=== PATIENT | male | born 2000 | race Caucasian/White ===

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

== ENCOUNTER → 2020-04-23 17:11 | Outpatient (BNVA) | payer OTHER, SELFPAY | PROVIDERS: Family Provider Family Medicine; Visit Provider Nurse Practitioner | DX: Z20.828 Contact with and (suspected) exposure to other viral communicable diseases (principal) | CPT/HCPCS: 87635 ==

== ENCOUNTER → 2020-12-07 10:25 | Outpatient (BNVA) | payer OTHER, SELFPAY | PROVIDERS: Family Provider Family Medicine; Visit Provider Nurse Practitioner Family | DX: Z20.822 Contact with and (suspected) exposure to COVID-19 (principal); J06.9 Acute upper respiratory infection, unspecified | CPT/HCPCS: 87400; 87426; 87880 ==

== ENCOUNTER 2023-06-21 13:30 | Emergency (ER) | payer SELFPAY ==
--- NOTE | 2023-06-21 13:32 | XR_ITS ---
WS: [id number] Exam: XR wrist LT min 3V* [id number] Date/Time of Exam: 06/21/2023 2:08 PM Reason For Exam: injury There are no fractures, soft tissue swelling, or unusual calcifications. The wrist shows normal bony alignment. There is no irregularity of the bony architecture. IMPRESSION: Negative LEFT wrist.
[2023-06-21 13:38] VITALS: BP 121/84; PULSE 77; RESP 18; TEMP 36.5; O2SAT 98
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
[2023-06-21 14:44] VITALS: PULSE 74; O2SAT 96
== END 2023-06-21 14:45 | disposition home or self-care (01) ==
PROVIDERS: Emergency Provider Nurse Practitioner Family
DX: S63.502A Unspecified sprain of left wrist, initial encounter (principal); Z72.0 Tobacco use; V47.5XXA Car driver injured in collision with fixed or stationary object in traffic accident, initial encounter
CPT/HCPCS: 73110; 99283

== ENCOUNTER 2023-11-01 03:37 | Inpatient (IN) | payer SELFPAY ==
[2023-11-01] VITALS (65 sets, daily range): BP systolic 95–135; BP diastolic 53–96; PULSE 63–117; RESP 12–23; TEMP 36.6–36.7; O2SAT 93–100; BMI 19.3; BMI 17.9
--- NOTE | 2023-11-01 03:43 | CTR_ITS ---
PROCEDURE INFORMATION: Exam: CT Head Without Contrast Exam date and time: 11/01/2023 5:26 AM Age: 23 years old Clinical indication: Altered mental status/memory loss; Additional info: AMS, hallucinations, agitation TECHNIQUE: Imaging protocol: Computed tomography of the head without contrast. Radiation optimization: All CT scans at this facility use at least one of these dose optimization techniques: automated exposure control; mA and/or kV adjustment per patient size (includes targeted exams where dose is matched to clinical indication); or iterative reconstruction. COMPARISON: No relevant prior studies available. RADIATION DOSE METRICS: Total DLP (mGy-cm): 1137.28 FINDINGS: Brain: No focal hemorrhage or midline shift is identified. The exam is limited by tilt of head to the right. Cerebral ventricles: No ventriculomegaly or evidence of acute hydrocephalus. Paranasal sinuses: The partially assessed sinuses are grossly clear. Mastoid air cells: Visualized mastoid air cells are well aerated. Bones: Unremarkable. No acute fracture. Soft tissues: Unremarkable. CT/CT head wo con* [id number] IMPRESSION: No acute intracranial abnormality.
--- NOTE | 2023-11-01 03:43 | XRR_ITS ---
PROCEDURE INFORMATION: Exam: XR Chest Exam date and time: 11/01/2023 4:16 AM Age: 23 years old Clinical indication: Cough; Additional info: Tachycardia TECHNIQUE: Imaging protocol: Radiologic exam of the chest. Views: 1 view. COMPARISON: CR XR ribs LT 2V* [id number] 10/01/2019 9:51 AM FINDINGS: Lungs: Unremarkable. No consolidation. Pleural spaces: Unremarkable. No pleural effusion. No pneumothorax. Heart/Mediastinum: Unremarkable. No cardiomegaly. Bones/joints: Unremarkable. XR/XR chest 1V portable [id number] IMPRESSION: No acute findings.
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
--- NOTE | 2023-11-01 03:55 | PC.NURSE ---
nasal trumpet 30fr placed in the pts left nare at this time
[2023-11-01 03:56] LABS: Basophils # 0.1 10^3/uL (0.0-0.1); Basophils % 0.5 %; Eosinophils # 0.2 10^3/uL (0.0-0.8); Eosinophils % 1.1 %; Hematocrit 51.4 % (37-53); Lymphocytes # 3.5 10^3/uL (0.8-4.8); Lymphocytes % 17.3 %; Mean Corpuscular HGB Conc 33.3 g/dL (30-55); Mean Corpuscular Hemoglobin 29.7 pg (27-33); Mean Corpuscular Volume 89.4 fl (82-101); Mean Platelet Volume 9.9 fL (7.4-10.4); Monocytes # 1.4 10^3/uL (0.2-0.9); Monocytes % 6.8 %; Neutrophils # 14.23 10^3/uL (1.8-7.7); Neutrophils % 70.3 %; Nucleated Red Blood Cells % 0 %; Platelet Count 294 10^3/cmm (157-399); Red Blood Count 5.75 10^6/uL (3.85-5.65); White Blood Count 20.28 10^3/uL (3.29-11.43)
--- NOTE | 2023-11-01 04:08 | ECG_ITS ---
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 Measurements Intervals [place] Rate: 111 P: 85 MT: 124 QRS: 114 QRSD: 85 T: 73 QT: 308 QTc: 419 Interpretive Statements SINUS TACHYCARDIA RIGHT ATRIAL ENLARGEMENT [0.3mV P-WAVE] POSSIBLE LEFT ATRIAL ENLARGEMENT [-0.1mV P-WAVE IN V1/V2] INDETERMINATE AXIS POSSIBLE RIGHT VENTRICULAR CONDUCTION DELAY [RSR (QR) IN V1/V2] LEFT POSTERIOR FASCICULAR BLOCK [QRS AXIS > 109, INFERIOR Q] No previous ECG available for comparison Electronically Signed On 11-01-2023 9:57:06 CDT by Manuel Robbins M.D. [id number]
[2023-11-01 04:16] LABS: ABG PCO2 41.3 mmHg (35-45); ABG PH Result 7.29 (7.35-7.45); Arterial Blood Gas Hematocrit 54.8 % (42-52); Base Excess ABG -6.8 mmol/L (-2.0-2.0); Blood Gas Allen Test Pos; Blood Gas Sample Type Arterial; Carboxyhemoglobin 1.5 %THgb (0.4-20.1); HCO3 ABG 19.6 mmol/L (22-26); HGB O2 Sat 97.5 % (95-100); Ionized Calcium Level - ABG 1.2 mmol/L (1.1-1.4); Methemoglobin 0.3 % (0.4-1.5); Oxygen Saturation ABG 99.3; Potassium Level - ABG 4.1 mmol/L (3.5-5.0); Total Hemoglobin 17.9 g/dL (14-18)
[2023-11-01 04:17] LABS: Blood Gas Operator Identificat CL; Blood Gas Sample Site Radial, right; Oxygen Device NC
[2023-11-01 04:19] LABS: Charge for UA Resulting for Rev
[2023-11-01 04:19] LABS: Troponin(5th) Baseline < 6 ng/L (0-15)
[2023-11-01 04:20] LABS: Acetaminophen < 5.0 ug/mL (10-30); Alanine Aminotransferase 20 U/L (0-41); Albumin Level 5.1 g/dL (3.5-5.2); Alcohol Level 300 mg/dL (0-10); Alkaline Phosphatase 56 U/L (40-130); Anion Gap 24.1 (5-19); Aspartate Amino Transferase 30 U/L (0-40); Blood Urea Nitrogen 8 mg/dL (6-20); Carbon Dioxide 19 mmol/L (22-29); Chloride 108 mmol/L (98-107); Creatinine Clr Calc Pharmacy 105.6096; Globulin 2.4 g/dL (1.3-4.6); Glomerular Filtration Rate 119.8 mL/min (90-130); Glucose 96 mg/dL (65-115); Magnesium 2.8 mg/dL (1.7-2.3); Osmolality Calculated 302 mOsm/kg (285-295); Potassium 4.1 mmol/L (3.5-5.1); Salicylate < 0.3 mg/dL (3-10); Sodium 147 mmol/L (136-145); Total Bilirubin 0.3 mg/dL (0.15-1.2); Total Protein 7.5 g/dL (6.6-8.7)
[2023-11-01 04:21] LABS: Bilirubin Urine Negative (Negative); Blood Urine 3+ (Negative); Glucose Urine UA Negative (Normal); Ketones Urine Negative (Negative); Leukocyte Esterase Urine Negative (Negative); Nitrate Urine Negative (Negative); Protein Urine 3+ (Negative); Specific Gravity, Urine 1.014 (1.005-1.030); Urine Appearance Cloudy (CLEAR); Urine Color Yellow (Yellow); pH Urine 5.5 (5-7)
[2023-11-01 04:24] LABS: Bacteria Urine None Seen /hpf; Hyaline Casts Urine 256.96 /lpf; RBC Urine 0-2 /hpf (0-2); WBC Urine 0-5 /hpf (0-5)
[2023-11-01 04:28] LABS: Lactic Sepsis W/Reflex 7.9 mmol/L (0.5-2.2)
[2023-11-01 04:28] LABS: Amphetamines Screen Urine Negative (Negative); Barbiturates Screen Urine Negative (Negative); Benzodiazepines Screen Urine Negative (Negative); Cocaine Screen Urine Negative (Negative); Opiate Screen Urine Negative (Negative); PCP Screen Urine Negative (Negative); THC Screen Urine Positive (Negative)
[2023-11-01 04:37] LABS: Add Urine Culture? No
[2023-11-01 04:38] LABS: Influenza A by IFA negative (Negative); Influenza B by IFA negative (Negative); SARS Covid-2 Antigen negative (Negative)
--- NOTE | 2023-11-01 04:39 | PC.NURSE ---
This nurse monitred pt to CT for scan. Pt began vomiting, unable to lay flat at this time. Pt pulled 2nd IV. aware.
[2023-11-01] MEDS: sodium chloride 0.9% 1,000 ML 999 ML IV ×2 (04:41→05:10)
[2023-11-01 04:48] LABS: Procalcitonin 0.04 ng/mL (0-0.5)
--- NOTE | 2023-11-01 05:44 | ECG_ITS ---
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 Measurements Intervals [place] Rate: 92 P: 82 MI: 146 QRS: 65 QRSD: 87 T: 75 QT: 339 QTc: 420 Interpretive Statements SINUS RHYTHM POSSIBLE RIGHT ATRIAL ENLARGEMENT [0.25mV P-WAVE] POSSIBLE LEFT ATRIAL ENLARGEMENT [-0.1mV P-WAVE IN V1/V2] INDETERMINATE AXIS POSSIBLE RIGHT VENTRICULAR CONDUCTION DELAY [RSR (QR) IN V1/V2] Compared to ECG 11/01/2023 04:08:01 Sinus tachycardia no longer present Left posterior fascicular block no longer present Electronically Signed On 11-01-2023 9:59:27 CDT by Manuel Robbins M.D. [id number]
[2023-11-01 05:51] LABS: Reflex Lactate Order REFLEX LACTIC ORDERD
[2023-11-01 06:29] LABS: Lactic Acid level (Lactate) 3.5 mmol/L (0.5-2.2)
[2023-11-01 06:41] LABS: Troponin 5 2HR Delta 0.00001 ABS# (0-10)
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
--- NOTE | 2023-11-01 07:59 | PC.NURSE ---
arrived from ED approximately 0730
[2023-11-01] MEDS: sodium chloride 0.9% 1,000 ML 75 ML IV ×2 (08:06→20:45)
[2023-11-01] MEDS: enoxaparin 40 mg/0.4 mL Syringe SUBCUT (08:06)
[2023-11-01] MEDS: cefepime 2,000 MG in sodium chloride 0.9% (plus) 50 ML 100 MG IV ×2 (08:07→20:42)
[2023-11-01] MEDS: vancomycin 500 MG in sodium chloride 0.9% (plus) 100 ML 200 MG IV ×3 (08:57→23:28)
[2023-11-01] MEDS: multivitamin therapeutic Tablet 1 TAB PO (08:58)
[2023-11-01] MEDS: pantoprazole DR 40 mg Tablet PO (08:58)
[2023-11-01] MEDS: folic acid 1 mg Tablet PO (08:58)
[2023-11-01] MEDS: thiamine 100 mg Tablet PO (08:58)
--- NOTE | 2023-11-01 09:44 | ECG_ITS ---
[facility] Test Date: 2023-11-01 Pat Name: Champ Bhat Department: Room: [facility] Gender: Male Store Consultant: : 2000 Requested By: Geovanni Edwards Order Number: [id number] Dennis MD: Manuel Robbins M.D. Measurements Intervals [place] Rate: 81 P: 80 UT: 134 QRS: 90 QRSD: 88 T: 75 QT: 333 QTc: 387 Interpretive Statements SINUS RHYTHM WITH SINUS ARRHYTHMIA POSSIBLE RIGHT VENTRICULAR CONDUCTION DELAY [RSR (QR) IN V1/V2] Compared to ECG 11/01/2023 06:33:53 Indeterminate axis no longer present Electronically Signed On 11-01-2023 11:19:19 CDT by Manuel Robbins M.D. [id number]
[2023-11-01 09:52] LABS: Troponin 5 6HR Delta 0.00001 ng/L (0-12)
[2023-11-01] MEDS: nicotine 21 mg Patch 1 PATCH TRANSDERMA (10:02)
[2023-11-01] MEDS: acetaminophen 325 mg Tablet 650 MG PO (18:45)
[2023-11-02] VITALS: BP 113/78; PULSE 58; RESP 18; TEMP 36.8; O2SAT 99
[2023-11-02 04:00] VITALS: BP 120/80; PULSE 57; RESP 18; TEMP 36.6; O2SAT 98
[2023-11-02 04:33] LABS: Basophils # 0.1 10^3/uL (0.0-0.1); Basophils % 0.6 %; Eosinophils # 0.2 10^3/uL (0.0-0.8); Eosinophils % 2.3 %; Hematocrit 40.6 % (37-53); Lymphocytes # 3.2 10^3/uL (0.8-4.8); Lymphocytes % 36.8 %; Mean Corpuscular HGB Conc 33.7 g/dL (30-55); Mean Corpuscular Hemoglobin 30.4 pg (27-33); Mean Corpuscular Volume 90.2 fl (82-101); Mean Platelet Volume 9.9 fL (7.4-10.4); Monocytes # 0.9 10^3/uL (0.2-0.9); Monocytes % 10.1 %; Neutrophils # 4.35 10^3/uL (1.8-7.7); Neutrophils % 49.5 %; Nucleated Red Blood Cells % 0 %; Platelet Count 186 10^3/cmm (157-399); Red Cell Distribution Width 12.2 % (12.1-15.1); White Blood Count 8.78 10^3/uL (3.29-11.43)
[2023-11-02 04:53] LABS: Alanine Aminotransferase 13 U/L (0-41); Albumin Level 3.6 g/dL (3.5-5.2); Alkaline Phosphatase 49 U/L (40-130); Anion Gap 13.8 (5-19); Aspartate Amino Transferase 21 U/L (0-40); Blood Urea Nitrogen 8 mg/dL (6-20); Carbon Dioxide 21 mmol/L (22-29); Chloride 112 mmol/L (98-107); Creatinine Clr Calc Pharmacy 120.6373; Globulin 1.6 g/dL (1.3-4.6); Glucose 90 mg/dL (65-115); Osmolality Calculated 294 mOsm/kg (285-295); Potassium 3.8 mmol/L (3.5-5.1); Sodium 143 mmol/L (136-145); Total Bilirubin 1.1 mg/dL (0.15-1.2); Total Protein 5.2 g/dL (6.6-8.7)
[2023-11-02 07:29] VITALS: BP 122/86; PULSE 64; RESP 15; TEMP 36.7; O2SAT 99
[2023-11-02] MEDS: vancomycin 500 MG in sodium chloride 0.9% (plus) 100 ML 200 MG IV (07:40)
[2023-11-02] MEDS: folic acid 1 mg Tablet PO (07:42)
[2023-11-02] MEDS: multivitamin therapeutic Tablet 1 TAB PO (07:42)
[2023-11-02] MEDS: pantoprazole DR 40 mg Tablet PO (07:42)
[2023-11-02] MEDS: nicotine 21 mg Patch 1 PATCH TRANSDERMA (07:42)
[2023-11-02] MEDS: thiamine 100 mg Tablet PO (07:42)
[2023-11-02] MEDS: enoxaparin 40 mg/0.4 mL Syringe SUBCUT (07:46)
[2023-11-02] MEDS: cefepime 2,000 MG in sodium chloride 0.9% (plus) 50 ML 100 MG IV (08:20)
[2023-11-02] MEDS: sodium chloride 0.9% 1,000 ML 75 ML IV (08:22)
--- NOTE | 2023-11-02 08:32 | P.DS_ITS ---
Discharge Providers Date of Admission: 11/01/23 05:26 Date of Discharge: November 01, 2023 Attending Provider at Admission: Farzaneh Figueroa MD Attending Provider at Discharge: Farzaneh Figueroa MD Diagnoses at Discharge Discharge Diagnosis (1) Alcohol intoxication: Status: Acute Qualifiers: Complication of substance-induced condition: uncomplicated Qualified Code(s): F10.920 - Alcohol use, unspecified with intoxication, uncomplicated (2) AMS (altered mental status): Status: Acute Qualifiers: Altered mental status type: unspecified Qualified Code(s): R41.82 - Altered mental status, unspecified (3) Lactic acidosis: Status: Acute (4) Leukocytosis: Status: Acute Reason for Visit Reason for Visit: hallucinations, agitation Hospital Course Hospital Course 23-year-old male who was admitted for management evaluation of alcohol intoxication, at the time of evaluation patient is awake and alert able to communicate, I did not see any focal deficit, clinically he was dehydrated, received IV fluids, patient is endorsing to binge drinking, never had significant withdrawal to the point he needed intubation. Patient is stating that he started drinking after his divorce, he was put on IV fluids along with antibiotics for possible UTI however he does not have any signs of UTI clinically. Patient has multiple bruises all over extremities. I do not see any active signs of infection patient may need thiamine and folic acid at the time of discharge. He is an active smoker smokes 1 pack/day. He is being discharged with stable hemodynamics, leukocytosis seems stress leukemoid reaction, lactic acid consistent with dehydration his sodium is 147 he was given IV fluids. Physical Exam Narrative: Awake and alert Multiple bruises no active signs of infection No sign of cellulitis S1, S2 Hemodynamically stable Present Nonfocal neuroexam Discharge Data Studies Completed and Pending Completed Studies During Hospitalization Category Date Time Status CT head wo con* [id number] Stat Cat Scan 11/01/23 03:43 Completed XR chest 1V portable [id number] Stat Exams 11/01/23 03:43 Completed Pending at discharge Category Date Time Status Blood Culture Stat Lab 11/01/23 07:40 Results Complete Blood Count w/Auto AM LABS Lab 11/02/23 04:00 Ordered Comprehensive Metabolic Panel AM LABS Lab 11/02/23 04:00 Ordered Tick Panel Routine Lab 11/01/23 07:38 Received Troponin(5th) 6 hour. Timed Lab 11/01/23 09:28 Received Radiology Impressions Chest X-Ray 11/01/23 03:43 IMPRESSION: No acute findings. Head CT 11/01/23 03:43 IMPRESSION: No acute intracranial abnormality. Laboratory Results WBC 20.28 10^3/uL (3.29-11.43) H 11/01/23 03:51 RBC 5.75 10^6/uL (3.85-5.65) H 11/01/23 03:51 Hgb 17.10 g/dL (11.27-16.99) H 11/01/23 03:51 Hct 51.4 % (37-53) 11/01/23 03:51 MCV 89.4 fl (82-101) 11/01/23 03:51 MCH 29.7 pg (27-33) 11/01/23 03:51 MCHC 33.3 g/dL (30-55) 11/01/23 03:51 RDW 12.0 % (12.1-15.1) L 11/01/23 03:51 Plt Count 294 10^3/cmm (157-399) 11/01/23 03:51 MPV 9.9 fL (7.4-10.4) 11/01/23 03:51 Neut % (Auto) 70.3 % 11/01/23 03:51 Lymph % (Auto) 17.3 % 11/01/23 03:51 [place] % (Auto) 6.8 % 11/01/23 03:51 Eos % (Auto) 1.1 % 11/01/23 03:51 Baso % (Auto) 0.5 % 11/01/23 03:51 Neut # (Auto) 14.23 10^3/uL (1.8-7.7) H 11/01/23 03:51 Lymph # (Auto) 3.5 10^3/uL (0.8-4.8) 11/01/23 03:51 [place] # (Auto) 1.4 10^3/uL (0.2-0.9) H 11/01/23 03:51 Eos # (Auto) 0.2 10^3/uL (0.0-0.8) 11/01/23 03:51 Baso # (Auto) 0.1 10^3/uL (0.0-0.1) 11/01/23 03:51 Nucleated RBC % (auto) 0 % 11/01/23 03:51 Nucleated RBCs # 0.0 /100WBC 11/01/23 03:51 Specimen Type Arterial 11/01/23 04:10 Sample Site Radial, right 11/01/23 04:10 ABG pH 7.29 (7.35-7.45) L 11/01/23 04:10 ABG pCO2 41.3 mmHg (35-45) 11/01/23 04:10 ABG pO2 163.0 mmHg (80.0-100.0) H 11/01/23 04:10 ABG HCO3 19.6 mmol/L (22-26) L 11/01/23 04:10 ABG O2 Saturation 99.3 11/01/23 04:10 ABG Base Excess -6.8 mmol/L (-2.0-2.0) L 11/01/23 04:10 Amador Test Pos 11/01/23 04:10 A-a O2 Gradient Not Reportable 11/01/23 04:10 Hematocrit 54.8 % (42-52) H 11/01/23 04:10 Hgb O2 Saturation 97.5 % (95-100) 11/01/23 04:10 Carboxyhemoglobin 1.5 %THgb (0.4-20.1) 11/01/23 04:10 Methemoglobin 0.3 % (0.4-1.5) L 11/01/23 04:10 Total Hemoglobin 17.9 g/dL (14-18) 11/01/23 04:10 Sodium 151.0 mmol/L (131-143) H 11/01/23 04:10 Potassium 4.1 mmol/L (3.5-5.0) 11/01/23 04:10 Glucose 101.0 mg/dL (70-115) 11/01/23 04:10 Ionized Calcium 1.2 mmol/L (1.1-1.4) 11/01/23 04:10 O2 Delivery Device Nc 11/01/23 04:10 Social Services Technician ID Cl 11/01/23 04:10 Sodium 147 mmol/L (136-145) H 11/01/23 03:51 Potassium 4.1 mmol/L (3.5-5.1) 11/01/23 03:51 Chloride 108 mmol/L (98-107) H 11/01/23 03:51 Carbon Dioxide 19 mmol/L (22-29) L 11/01/23 03:51 Anion Gap 24.1 (5-19) H 11/01/23 03:51 BUN 8 mg/dL (6-20) 11/01/23 03:51 Creatinine 0.8 mg/dL (0.7-1.2) 11/01/23 03:51 GFR Calculation 119.8 mL/min (90-130) 11/01/23 03:51 Glucose 96 mg/dL (65-115) 11/01/23 03:51 Calculated Osmolality 302 mOsm/kg (285-295) H 11/01/23 03:51 Lactic Acid 7.9 mmol/L (0.5-2.2) H* 11/01/23 03:51 Lactic Acid (Sepsis) 3.5 mmol/L (0.5-2.2) H 11/01/23 06:08 Calcium 9.0 mg/dL (8.5-10.5) 11/01/23 03:51 Magnesium 2.8 mg/dL (1.7-2.3) H 11/01/23 03:51 Total Bilirubin 0.3 mg/dL (0.15-1.2) 11/01/23 03:51 AST 30 U/L (0-40) 11/01/23 03:51 ALT 20 U/L (0-41) 11/01/23 03:51 Alkaline Phosphatase 56 U/L (40-130) 11/01/23 03:51 Troponin T Baseline < 6 ng/L (0-15) 11/01/23 03:51 Troponin T 120 Minute 6.00 ng/L (0-15) 11/01/23 06:10 Delta Troponin T 0.29246 ABS# (0-10) 11/01/23 06:10 Total Protein 7.5 g/dL (6.6-8.7) 11/01/23 03:51 Albumin 5.1 g/dL (3.5-5.2) 11/01/23 03:51 Globulin 2.4 g/dL (1.3-4.6) 11/01/23 03:51 Procalcitonin 0.04 ng/mL (0-0.5) 11/01/23 03:51 TSH 1.70 uIU/mL (0.27-4.20) 11/01/23 03:51 Urine Color Yellow (Yellow) 11/01/23 03:59 Urine Appearance Cloudy (CLEAR) A 11/01/23 03:59 Urine pH 5.5 (5-7) 11/01/23 03:59 Ur Specific [place] 1.014 (1.005-1.030) 11/01/23 03:59 Urine Protein 3+ (Negative) A 11/01/23 03:59 Urine Glucose (UA) Negative (Normal) 11/01/23 03:59 Urine Ketones Negative (Negative) 11/01/23 03:59 Urine Blood 3+ (Negative) A 11/01/23 03:59 Urine Nitrate Negative (Negative) 11/01/23 03:59 Urine Bilirubin Negative (Negative) 11/01/23 03:59 Urine Urobilinogen 1.0 mg/dL (Negative) 11/01/23 03:59 Ur Leukocyte Esterase Negative (Negative) 11/01/23 03:59 Urine RBC 0-2 /hpf (0-2) 11/01/23 03:59 Urine WBC 0-5 /hpf (0-5) 11/01/23 03:59 Ur Squamous Epith Cells 6-10 /hpf (0-5) 11/01/23 03:59 Amorphous Sediment Not Reportable 11/01/23 03:59 Urine Bacteria None seen /hpf (NONE) 11/01/23 03:59 Hyaline Casts 256.96 /lpf 11/01/23 03:59 Salicylates < 0.3 mg/dL (3-10) L 11/01/23 03:51 Urine Opiates Screen Negative ng/mL (Negative) 11/01/23 03:59 Acetaminophen < 5.0 ug/mL (10-30) L 11/01/23 03:51 Ur Barbiturates Screen Negative ng/mL (Negative) 11/01/23 03:59 Ur Phencyclidine Scrn Negative ng/mL (Negative) 11/01/23 03:59 Ur Amphetamines Screen Negative ng/mL (Negative) 11/01/23 03:59 U Benzodiazepines Scrn Negative ng/mL (Negative) 11/01/23 03:59 Urine Cocaine Screen Negative ng/mL (Negative) 11/01/23 03:59 U Marijuana (THC) Screen Positive ng/mL (Negative) H 11/01/23 03:59 Ethyl Alcohol 300 mg/dL (0-10) H 11/01/23 03:51 Influenza Type A Ag negative (Negative) 11/01/23 04:10 Influenza Type B Ag negative (Negative) 11/01/23 04:10 SARS-CoV-2 Ag (Rapid) negative (Negative) 11/01/23 04:10 Vitals Last Vital Signs Temp 97.9 F 11/01/23 03:38 Pulse 86 11/01/23 09:05 Resp 17 11/01/23 09:05 BP 135/96 11/01/23 09:05 Pulse Ox 100 11/01/23 09:05 O2 Del Method Room Air 11/01/23 07:30 O2 Flow Rate 2 11/01/23 03:54 Discharge Plan Discharge Patient Disposition: Home Condition: Stable Prescriptions: New doxycycline hyclate 100 mg tablet 100 mg PO BID 3 Days Qty: 6 0RF folic acid 1 mg Tablet 1 mg PO DAILY Qty: 30 0RF thiamine mononitrate (vit B1) [Vitamin B-1 (mononitrate)] 100 mg Tablet 100 mg PO DAILY Qty: 30 0RF No Action No Known Home Medications Discharge Orders: Discharge Order (Routine); Ordered 11/02/23 Ordered By: Yesica Reyes Patient Instructions: Opioid Safety Discharge Attestations Time Spent in Discharge Care*: greater than 30 min Quality Metrics Clinical Quality Measures [ No reported AMI, CVA or VTE this stay] Coding Level of Care Code Acute Code for g Fwd Diagnoses Alcohol intoxication F10.920 Complication of substance-induced condition: uncomplicated AMS (altered mental status) R41.82 Altered mental status type: unspecified Lactic acidosis E87.20 Leukocytosis D72.829
--- NOTE | 2023-11-02 08:35 | PC.CHAP ---
Pastoral Care Encounter/Spiritual Assessment Type of Contact [x] Declined director digital strategy visit [] Patient/Family/Request visit [] Outpatient visit [] Follow-up visit [] Physician referral [] Code/Alert [x] Routine visit [] Staff referral [] Actively dying [] Patient sleeping [] Family support [] [] Out of room [] Palliative care [] [] Receiving care in room [] Pre-surgical visit [] Trauma [] Long length of stay [] ICU visit [] Other: Relational/Emotional Strength [x] Patient feels connected with others/family/visitors/staff [x] Distress [] Loneliness/isolation [] Abandonment Spirituality of Patient [x] Person of Denise [] Attends Religion of their Denise [] Believes in Prayer [] Reads Bible or Restorationist materials [x] There are Spiritual issues to be addressed Deputy Fire Chief Interventions [] Prayer [] Active listening [] Non-anxious presence [] Spiritual/emotional support [] Crisis/trauma care [] Spiritual counseling [] Bereavement support [] Provided bereavement packet [] Provided Bible/devotional materials [] Provided toy/stuffed animal, coloring book to patient or family member [] Provided Communion [] Anointing/[place] [] Salvation [] Completed spiritual assessment [] Other: Impact on Illness or Injury [] Angry [] Fearful [] Anxious [] Often cries [] Exhaustion [] Unable to work [] Unable to attend taoism [] Unable to walk/stand [] Unable to read [] Unable to drive [] Unable to eat/drink [] Unable to sleep [] Unable to be with family [] Patient intubated [] Other: Summary Gnosticist will allow us to pray but will not pray with us Time spent with patient 5min
[2023-11-02 09:15] VITALS: BP 122/86; PULSE 64; RESP 15; TEMP 36.7; O2SAT 99
--- NOTE | 2023-11-02 09:15 | PC.NURSE ---
Discharge Note Patient discharged to home via private vehicle accompanied by father. Discharge instructions reviewed with patient and/or u.s. representative. Mobile pharmacy medications and/or prescriptions provided. Belongings/home medications returned.
[2023-11-02 14:35] LABS: Lyme AB Screen <0.90 index
[2023-11-06 16:54] LABS: RMSF IGG NOT DETECTED; RMSF IGM NOT DETECTED
[2023-11-07 17:20] LABS: E. Chaffeensis AB IGG <1:64; E. Chaffeensis AB IGM <1:20
== END 2023-11-02 09:55 | disposition home or self-care (01) | DRG 897 ==
LOC: ER 05:12 → ICU 05:26 → MEDSURG 18:04
PROVIDERS: Admitting Provider Student in an Organized Health Care Education/Training Program; Emergency Provider Emergency Medicine; Visit Provider Student in an Organized Health Care Education/Training Program
DX: F10.129 Alcohol abuse with intoxication, unspecified (principal); E87.20 Acidosis, unspecified; Y90.8 Blood alcohol level of 240 mg/100 ml or more; E86.0 Dehydration; D72.829 Elevated white blood cell count, unspecified; F17.200 Nicotine dependence, unspecified, uncomplicated; R21 Rash and other nonspecific skin eruption; T14.8XXA Other injury of unspecified body region, initial encounter; X58.XXXA Exposure to other specified factors, initial encounter
CPT/HCPCS: 36415; 36600; 70450; 71045; 80051; 80053; 80306; 80307; 81003; 81015; 82330; 82805; 83605; 83735; 84145; 84443; 84484; 85025; 86618; 86666; 86757; 87040; 87426; 87804; 93005; 96360; 96372; 99285; 99291; J0692; J1650; J3370; J3411; J7030

== ENCOUNTER 2024-10-21 10:48 | Emergency (ER) | payer SELFPAY ==
[2024-10-21 10:53] VITALS: BP 117/76; PULSE 85; TEMP 36.7; O2SAT 100; BMI 20.1
[2024-10-21 11:13] VITALS: PULSE 90; O2SAT 99
--- NOTE | 2024-10-21 11:14 | ED_ITS ---
HPI - Nausea/Vomiting/Diarrhea 2 General: Chief complaint: Nausea/Vomiting/Diarrhea Stated complaint: diarhea Time Seen by Provider: 10/21/24 10:56 Source: patient Mode of arrival: ambulatory Limitations: no limitations History of Present Illness: 24-year-old male who presents to the ED with complaint of nausea, vomiting, watery diarrhea, abdominal cramping over the past 5 days. Patient denies any recent travel or consuming any spoiled food, but states that his friend at work had similar symptoms for about a week that had resolved on its own. He reports that the vomiting has decreased in frequency but his diarrhea is persistently every 30 minutes to 1 hour. He also reports feeling dehydrated and having intermittent headaches, which she has been taking Tylenol as needed for. He states he is able to eat and drink but the persistent diarrhea is keeping him dehydrated. He has also been taking Pepto-Bismol. Denies any fever, chills, chest pain, shortness of breath, blood in the stool, or urinary symptoms. No other complaints at this time. MD elicited complaint: nausea, vomiting, diarrhea and abdominal pain Onset (ago): day(s) (5) Description of vomiting: watery Description of diarrhea: mucus and watery Associated nausea: Yes Associated abdominal pain: Yes Location of pain: Diffuse Pain consistency: intermittent Quality: cramping Relieving factors: none Context: sick contacts Associated symtoms: Reports headache(s) and nausea; Denies chest pain, fevers/chills, palpitations, short of breath or weakness Treatment prior to arrival: analgesics (Tylenol) and other OTC medicine (Pepto- Bismol) Related Data Previous Rx's ?Medication ?Instructions ?Recorded folic acid 1 mg tablet 1 mg PO DAILY #30 tabs 10/31 thiamine mononitrate (vit B1) 100 100 mg PO DAILY #30 tabs 11/01/23 mg tablet (Vitamin B-1 (mononitrate)) ciprofloxacin HCl 500 mg tablet 500 mg PO Q12H #14 tab s 10/21/24 (Cipro) metronidazole 500 mg tablet 500 mg PO BID 7 days #14 t abs 10/21/24 Allergies Allergy/AdvReac Type Severity Reaction Status Date / Time Opioids - Morphine Analogues Allergy Mild Unknown Verified 10/21/24 10:58 Review of Systems 2 Const: Denies: fever(s) or chills Card: Denies: chest pain or palpitations GI: Reports: abdominal pain, nausea, vomiting and diarrhea; Denies: hematochezia Neuro: Reports: headache(s) PFSH ED 2 PFSH: Medical History (Updated 10/21/24 @ 12:27 by JASEN Dockery) Leukocytosis Lactic acidosis AMS (altered mental status) Alcohol intoxication Social History Smoking and tobacco/nicotine status: current every day tobacco/nicotine user Course 2 Vital Signs: Vital signs: Vital Signs Temperature 98.0 F 10/21/24 10:53 Pulse Rate 90 10/21/24 11:13 Blood Pressure 117/76 10/21/24 10:53 Pulse Oximetry 99 10/21/24 11:13 Oxygen Delivery Me thod Room Air 10/21/24 11:13 MDM - Nausea/Vomiting/Diarrhea Medical Decision Making Patient here for nausea, vomiting, diarrhea, abdominal pain over the past several days. Vital signs are stable. Blood work showing white count of 19,000. Remainder of labs are unremarkable. He was not able to give a stool sample in over 2-1/2 hours while here. Will cover with Cipro/Flagyl. Recommend he follow-up with primary care. Return to ED precautions discussed. Medical Records I reviewed the patient's medical records. Lab Data I reviewed the patient's lab results. 10/21/24 11:19 10/21/24 11:19 Radiology Impressions Abdomen/Pelvis CT 10/21/24 11:45 IMPRESSION: 1. Findings suspicious for acute enterocolitis described above with diffuse enhancement likely infectious or inflammatory. 2. Normal appendix Notified JASEN Dockery at 10/21/2024 12:22 PM. Laboratory Results WBC 19.15 10^3/uL (3.29-11.43) H 10/21/24 11:19 RBC 5.57 10^6/uL (3.85-5.65) 10/21/24 11:19 Hgb 16.40 g/dL (11.27-16.99) 10/21/24 11:19 Hct 47.9 % (37-53) 10/21/24 11:19 MCV 86.0 fl (82-101) 10/21/24 11:19 MCH 29.4 pg (27-33) 10/21/24 11:19 MCHC 34.2 g/dL (30-55) 10/21/24 11:19 RDW 11.9 % (12.1-15.1) L 10/21/24 11:19 Plt Count 290 10^3/cmm (157-399) 10/21/24 11:19 MPV 9.7 fL (7.4-10.4) 10/21/24 11:19 Neut % (Auto) 77.8 % 10/21/24 11:19 Lymph % (Auto) 12.2 % 10/21/24 11:19 Cassia % (Auto) 8.6 % 10/21/24 11:19 Eos % (Auto) 0.5 % 10/21/24 11:19 Baso % (Auto) 0.4 % 10/21/24 11:19 Neut # (Auto) 14.90 10^3/uL (1.8-7.7) H 10/21/24 11:19 Lymph # (Auto) 2.3 10^3/uL (0.8-4.8) 10/21/24 11:19 Cassia # (Auto) 1.7 10^3/uL (0.2-0.9) H 10/21/24 11:19 Eos # (Auto) 0.1 10^3/uL (0.0-0.8) 10/21/24 11:19 Baso # (Auto) 0.1 10^3/uL (0.0-0.1) 10/21/24 11:19 Nucleated RBC % (auto) 0 % 10/21/24 11:19 Nucleated RBCs # 0.0 /100WBC 10/21/24 11:19 Sodium 138 mmol/L (136-145) 10/21/24 11:19 Potassium 3.8 mmol/L (3.5-5.1) 10/21/24 11:19 Chloride 98 mmol/L (98-107) 10/21/24 11:19 Carbon Dioxide 25 mmol/L (22-29) 10/21/24 11:19 Anion Gap 18.8 (5-19) 10/21/24 11:19 BUN 10 mg/dL (6-20) 10/21/24 11:19 Creatinine 0.7 mg/dL (0.7-1.2) 10/21/24 11:19 GFR Calculation 138.6 mL/min (90-130) H 10/21/24 11:19 Glucose 106 mg/dL (65-115) 10/21/24 11:19 Calculated Osmolality 285 mOsm/kg (285-295) 10/21/24 11:19 Calcium 9.5 mg/dL (8.5-10.5) 10/21/24 11:19 Total Bilirubin 0.5 mg/dL (0.15-1.2) 10/21/24 11:19 AST 15 U/L (0-40) 10/21/24 11:19 ALT 12 U/L (0-41) 10/21/24 11:19 Alkaline Phosphatase 61 U/L (40-130) 10/21/24 11:19 Total Protein 7.4 g/dL (6.6-8.7) 10/21/24 11:19 Albumin 4.5 g/dL (3.5-5.2) 10/21/24 11:19 Globulin 2.9 g/dL (1.3-4.6) 10/21/24 11:19 Lipase 24 U/L (13-60) 10/21/24 11:19 Urine Color Yellow (Yellow) 10/21/24 11:00 Urine Appearance Clear (CLEAR) 10/21/24 11:00 Urine pH 6.0 (5-7) 10/21/24 11:00 Ur Specific [place] 1.029 (1.005-1.030) 10/21/24 11:00 Urine Protein Trace (Negative) A 10/21/24 11:00 Urine Glucose (UA) Negative (Normal) 10/21/24 11:00 Urine Ketones Negative (Negative) 10/21/24 11:00 Urine Blood 2+ (Negative) A 10/21/24 11:00 Urine Nitrate Negative (Negative) 10/21/24 11:00 Urine Bilirubin Negative (Negative) 10/21/24 11:00 Urine Urobilinogen 1.0 mg/dL (Negative) 10/21/24 11:00 Ur Leukocyte Esterase Negative (Negative) 10/21/24 11:00 Urine RBC 3-5 /hpf (0-2) 10/21/24 11:00 Urine WBC 0-5 /hpf (0-5) 10/21/24 11:00 Ur Squamous Epith Cells 0-5 /hpf (0-5) 10/21/24 11:00 Amorphous Sediment Not Reportable 10/21/24 11:00 Urine Bacteria None seen /hpf (NONE) 10/21/24 11:00 Hyaline Casts 2.05 /lpf 10/21/24 11:00 All radiology interpretation(s) finalized by discharge Discharge Plan Discharge Patient Disposition: Home Clinical Impression: Enteritis, Colitis Condition: Stable Prescriptions: New metronidazole 500 mg tablet 500 mg PO BID 7 Days Qty: 14 0RF ciprofloxacin HCl [Cipro] 500 mg tablet 500 mg PO Q12H Qty: 14 0RF No Action folic acid 1 mg Tablet 1 mg PO DAILY Qty: 30 0RF Vitamin B-1 (mononitrate) 100 mg Tablet 100 mg PO DAILY Qty: 30 0RF Discharge Orders: Discharge ED (Routine); Ordered 10/21/24 Ordered By: Helen Klein Patient Instructions: Colitis (ED), Enteritis (ED), Patient Portal & [place] Instructions Stand Alone Forms: Work/School Release Print Language: Luxembourgish Coding Level of Care Code ED Eff[employer] Compounder for Debbie Palm
[2024-10-21 11:18] LABS: Glucose Urine UA Negative (Normal); Nitrate Urine Negative (Negative); Specific Gravity, Urine 1.029 (1.005-1.030)
[2024-10-21 11:22] LABS: Add Urine Microscopic? YES
[2024-10-21 11:26] LABS: Hematocrit 47.9 % (37-53); Hemoglobin 16.40 g/dL (11.27-16.99); Mean Corpuscular HGB Conc 34.2 g/dL (30-55); Mean Corpuscular Hemoglobin 29.4 pg (27-33); Mean Corpuscular Volume 86.0 fl (82-101); Nucleated Red Blood Cells % 0 %; Platelet Count 290 10^3/cmm (157-399); Red Blood Count 5.57 10^6/uL (3.85-5.65); White Blood Count 19.15 10^3/uL (3.29-11.43)
[2024-10-21 11:43] LABS: Alanine Aminotransferase 12 U/L (0-41); Albumin Level 4.5 g/dL (3.5-5.2); Alkaline Phosphatase 61 U/L (40-130); Anion Gap 18.8 (5-19); Aspartate Amino Transferase 15 U/L (0-40); Blood Urea Nitrogen 10 mg/dL (6-20); Calcium 9.5 mg/dL (8.5-10.5); Carbon Dioxide 25 mmol/L (22-29); Chloride 98 mmol/L (98-107); Creatinine Clr Calc Pharmacy 121.3351; Globulin 2.9 g/dL (1.3-4.6); Glucose 106 mg/dL (65-115); Lipase 24 U/L (13-60); Osmolality Calculated 285 mOsm/kg (285-295); Potassium 3.8 mmol/L (3.5-5.1); Sodium 138 mmol/L (136-145); Total Protein 7.4 g/dL (6.6-8.7)
--- NOTE | 2024-10-21 11:45 | CT_ITS ---
WS: [id number] CT ABDOMEN PELVIS TECHNIQUE: Contrast-enhanced CT of the abdomen and pelvis with coronal and sagittal reformatted images. CLINICAL INFORMATION: diarrhea, abdominal pain, elevated white count COMPARISON: 2016 DLP: 293.[address] scans at [facility] use at least one of these dose optimization techniques: automated exposure control; mA and/or kV adjustment per patient size (includes targeted exams where dose is matched to clinical indication); or iterative reconstruction. FINDINGS: Diffuse submucosal enhancement with thickening of the colon extending to the rectum. Fluid-filled colon with air-fluid levels. Fluid-filled cecum with air- fluid level. In addition thickening of small bowel loops with enhancement worse in the pelvis. Findings suspicious for colitis and small bowel enteritis. Prominent reactive lymph nodes along the central mesentery. Appendix appears air-filled and normal. No evidence of acute appendicitis. Lung bases are well aerated. Mild hepatomegaly. Portal vein and splenic vein are patent. Normal pancreas. Adrenal glands are normal. Normal splenic enhancement. Adrenal glands are normal. Normal renal parenchymal enhancement. No hydronephrosis. Normal caliber abdominal aorta. CT/CT abdomen pelvis w con* [id number] IMPRESSION: 1. Findings suspicious for acute enterocolitis described above with diffuse en hancement likely infectious or inflammatory. 2. Normal appendix Notified JASEN Dockery at 10/21/2024 12:22 PM.
[2024-10-21] MEDS: iohexol 350 mg/mL 500 mL Btl (per mL) IV (12:01)
--- NOTE | 2024-10-22 14:15 | PC.NURSE ---
PCP referral sent.
== END 2024-10-21 13:20 | disposition home or self-care (01) ==
PROVIDERS: Emergency Provider Physician Assistant
DX: K52.9 Noninfective gastroenteritis and colitis, unspecified (principal); Z72.0 Tobacco use
CPT/HCPCS: 74177; 80053; 81001; 83690; 85025; 96360; 96361; 99285; J7030